=== PATIENT | female | born 1955 | race Caucasian/White ===

== ENCOUNTER 2023-05-09 19:13 | Inpatient (IN) ==
--- NOTE | 2023-05-09 19:23 | Emergency Department Note ---
SOB HPI General Chief Complaint: Shortness of Breath/Dyspnea Stated Complaint: shortness of breath, Afib Time Seen by Provider: 05/09/23 19:23 Source: patient and EMS Mode of arrival: EMS Limitations: no limitations History of Present Illness HPI Narrative: Narrative: This is a 67-year-old white female with a history of paroxysmal atrial fibrillation but has not had a significant recurrence for a number of years. The patient states that she was at one time placed on a Holter monitor and followed briefly by cardiology. There was no further ultrasound or any heart catheterization or other procedures recommended. She did have significant improvement and has not had ongoing or significant chest pain. The patient states that she did have some decreased oral intake as well due to her palpitations that she noted onset today with discomfort. She just recently on Friday had a minimally invasive total left hip arthroplasty but has recovered well. She was not placed on perioperative anticoagulation per the patient. She presents with her daughter today. She denies syncope. She has had some mild redness of her left leg noted as well however this was not in the popliteal area was predominantly in the distal thigh anteriorly. She feels that this may be erythema doing to significant icing of her leg Related Data Home Medications Medication Instructions Recorded Confirmed aspirin 81 mg chewable tablet 81 mg PO BID 05/10/23 05/10/23 hydrocodone 10 mg-acetaminophen 1 - 2 tab PO Q4-6HP PRN pain 05/10/23 05/10/23 325 mg tablet levothyroxine 150 mcg tablet 150 mcg PO QAM 05/10/23 05/10/23 meloxicam 7.5 mg tablet 7.5 mg PO QDAY 05/10/23 05/10/23 methocarbamol 750 mg tablet 750 mg PO Q8HP PRN muscle spasm 05/10/23 05/10/23 promethazine 25 mg tablet 25 mg PO Q8HP PRN nausea 05/10/23 05/10/23 Allergies Allergy/AdvReac Type Severity Reaction Status Date / Time Erythromycin Base AdvReac Nausea Verified 05/09/23 19:20 Review of Systems ROS ROS Narrative: Narrative: 10 point review was reviewed and otherwise negative except described above in HPI PFSH Narrative Patient History Narrative: Narrative: Patient has had paroxysmal atrial fibrillation, history of asthma. Surgical history includes C-sections. Medical/Surgical/Family History All Active Problems (Updated 05/10/23 @ 00:53 by Myles Schilling DO) Palpitations (Acute) Atrial fibrillation with RVR (Acute) Social History Smoking Status: Never smoker Exam Narrative Narrative: Narrative: General Limitations: no limitations General appearance: Present anxious Head Head: Present atraumatic and normocephalic Eye Eye: Present normal appearance, PERRL and scleral icterus (None) ENT ENT: Present normal oropharynx and mucous membranes moist Neck Neck: Present normal inspection, full ROM, meningismus (No) and other (No significant JVD. Trachea midline) Chest Chest: Present normal inspection and tenderness (No) Respiratory Respiratory: Present rales/crackles (Mild at left base.) Cardiovascular Cardiovascular: Present tachycardia, irregular rhythm (Rapid atrial fibrillation with heart rate in the 160s to 170 range) and JVD (No) Adbominal Abdominal: Present soft, rebound (None) and rigidity (None) Extremities Extremities: Present other (Patient had dressing over the left hip from recent total hip arthroplasty. There is also incision with dressing at the right intact. The dressings were not removed. She had some mild left anterior and distal leg erythema. There was negative Homans' sign. She had no significant medial thigh pain) Neurological Neurological: Present alert and oriented X3 Psychiatric Psychiatric: Present normal affect, anxious (Predominantly due to her palpitati ons) and pleasant Skin Skin: Present cool (No), cyanosis (None) and other (Please see extremity exam.) Course Course Course Narrative: Patient had ER visits and we discussed controlling her rate and possibly she may have a conversion since she has had previous paroxysmal atrial fibrillation. Full lab work-up including CBC chemistries, troponin which was performed x2, and EKG. EKG in my opinion had a heart rate of 162 with a QRS duration of 93 with QTc of 452. [place] was -18. The patient had no obvious sign of acute ST elevation. I reviewed the EKG at 1936. The patient did have IV fluid given and chest x-ray performed. In my opinion had possible slight congestion with increased cephalization. There was a questionable infiltrate at the right base versus atelectasis. Patient was placed on amiodarone infusion after bolus was given. She had already taken aspirin today. We performed a left lower extremity Doppler which was negative for DVT. She received a dose of Lovenox due to her persistent atrial fibrillation at approximately 1 mg/kg x 1. Patient did have ongoing fairly rapid heart rate and we gave additional dose of labetalol which was 25 mg IV push which did control the heart rate down to less than 100. Blood pressures remained stable at approximately 1 20-1 30. I discussed the case with Dr. Barron, and felt the patient can be admitted to our institution without transfer. Likely will require echocardiogram. Hopefully the patient does convert. I held off on antibiotics at this time as she had no fever nor elevated WBC count. Patient was reevaluated multiple times in the ED and after heart rate was controlled I rediscussed the case with the hospitalist Dr. Barron, and he recommended an oral beta-delta to be given now and to continue with amiodarone. He would see the patient early in the morning. Patient was up-to-date and notified of our plan. Patient did tolerate the Lovenox as well. Patient to be admitted to the intensive care unit. Vital Signs Vital signs: Vital Signs Temperature 99.5 F H 05/09/23 19:17 Pulse Rate 170 H 05/09/23 19:17 Respiratory Rate 16 05/09/23 19:17 Blood Pressure 158/88 05/09/23 19:17 Pulse Oximetry (%) 94 05/09/23 19:17 Oxygen Delivery Method Room Air 05/09/23 19:17 Temperature 99.5 F H 05/09/23 19:17 Pulse Rate 109 H 05/10/23 00:01 Respiratory Rate 20 05/10/23 00:01 Blood Pressure 120/71 05/10/23 00:01 Pulse Oximetry (%) 95 05/10/23 00:01 Oxygen Delivery Method Room Air 05/09/23 19:17 [facility] MDM Narrative Medical decision making narrative: Narrative: Lab Data Labs: Lab Results 05/09/23 05/09/23 05/09/23 Range/Units 19:22 19:24 21:28 POC Hct 26.0 L (36-48) POC Sodium 140 (133-145) POC Potassium 3.6 (3.3-5.1) POC Chloride 102 (96-108) POC Total CO2 24.0 (22-30) POC Anion Gap 19.0 H (8.0-16.0) POC BUN 12 (6-20) POC Creatinine 0.4 L (0.6-1.2) POC Glucose 136 H (70-105) POC WB Ioniz Calcium 1.14 L (1.16-1.32) POC Troponin I < 0.02 0.03 (0.00-0.08) CC TIME Critical Care Time Critical Care Time: Yes Total Critical Care Time: 35 Attestation: Due to ongoing reevaluation and atrial fibrillation with rapid ventricular rate. Patient's family was notified including the daughter and the patient was informed of results and treatment plan. Patient admitted Discharge Plan Patient/Caregiver Discharge Instructions Pt seen by CONSULTING MANAGER/PA only: No Clinical Impression: Palpitations, Atrial fibrillation with RVR Patient Disposition: Xfer As Inpt ([facility]) Condition: Critical Follow up with: Linsey Smith ARNP [Primary Care Provider] - Prescriptions: No Action Synthroid
[2023-05-09 19:39] LABS: POC Calcium, Ionized 1.14 (1.16-1.32); POC Creatinine 0.4 (0.6-1.2); POC Potassium 3.6 (3.3-5.1)
[2023-05-09] MEDS ORDERED: AMIODARONE 150 MG/3 ML VIAL IV ONE (19:39)
[2023-05-09] MEDS ORDERED: AMIODARONE 360 MG in PREMIX 1 BAG IV SCH (19:45)
[2023-05-09] MEDS ORDERED: ENOXAPARIN 60 MG/0.6 ML SYRINGE SQ ONE (21:04)
[2023-05-09] MEDS ORDERED: ENOXAPARIN 100 MG/ML SYRINGE SQ ONE (21:12)
[2023-05-09] MEDS ORDERED: LABETALOL 5 MG/ML ML IV ONE (21:51)
[2023-05-09] MEDS ORDERED: LABETALOL 5 MG/ML ML IV PRN (22:37)
[2023-05-10] MEDS: METOPROLOL TARTRATE 25 MG TABLET PO SCH ×3 (00:56→20:59)
[2023-05-10] MEDS: AMIODARONE 360 MG in PREMIX 1 BAG IV SCH ×2 (02:03→14:22)
--- NOTE | 2023-05-10 04:01 | Ultrasound Report ---
CLINICAL INFORMATION: Shortness of breath. Recent left leg surgery COMPARISON: None. FINDINGS: The entire deep venous system including the common femoral, superficial femoral, popliteal and paired trifurcation calf veins are easily compressible and show normal venous blood flow on color and spectral Doppler. No evidence of thrombus IMPRESSION: Negative exam - no evidence of deep vein thrombosis. Interpreted and Authenticated by: Omero Luna 05/10/23
--- NOTE | 2023-05-10 04:07 | XRay Report ---
CLINICAL INFORMATION: Dyspnea COMPARISON: 03/29/2019 TECHNIQUE: Portable FINDINGS: The heart size, mediastinum and pulmonary vessels are unremarkable. The lungs are clear. There are no effusions. The bones and soft tissues are within normal limits. IMPRESSION: Normal chest. Interpreted and Authenticated by: Omero Luna 05/10/23
[2023-05-10 06:36] LABS: Basophils # (Auto) 0.05 K/mcL (0.00-0.30); Basophils % (Auto) 0.7 % (0.0-2.0); Eosinophils # (Auto) 0.12 K/mcL (0.00-0.70); Eosinophils % (Auto) 1.6 % (0.0-7.0); Hemoglobin 9.6 g/dL (11.2-15.7); Lymphocytes # (Auto) 1.55 K/mcL (1.50-4.80); Lymphocytes % (Auto) 20.6 % (15.5-49.0); Mean Cell Volume 90.9 fL (80.0-100.0); Mean Platelet Volume 10.8 fL (8.8-12.5); Monocytes # (Auto) 0.72 K/mcL (0.10-0.90); Monocytes % (Auto) 9.6 % (1.0-12.0); Neutrophils % (Auto) 67.4 % (38.0-78.0); Platelet Count 289 K/mcL (140-440); WBC 7.5 K/mcL (4.5-11.0)
[2023-05-10] MEDS ORDERED: SENNOSIDES 1 TABLET PO ONE (06:42)
[2023-05-10 07:01] LABS: ALT/SGPT 13 U/L (<40); AST/SGOT 20 U/L (<32); Albumin 3.1 gm/dL (3.2-5.2); Albumin/Globulin Ratio 1.1 (1.0-2.3); Alkaline Phosphatase 47 U/L (39-117); Bilirubin,Direct < 0.2 mg/dL (0-0.3); Bilirubin,Total 0.3 mg/dL (0.1-1.0); Blood Urea Nitrogen 14 mg/dL (8-23); Calcium 8.9 mg/dL (8.6-10.4); Carbon Dioxide 26 mmol/L (22-30); Chloride 104 mmol/L (96-108); Globulin 2.9 gm/dL (2.2-3.7); Glomerular Filtration Rate 101; Glucose 132 mg/dL (70-105); Lactate Dehydrogenase 262 U/L (135-225); Phosphorous 4.3 mg/dL (2.5-4.5); Triglycerides 84 mg/dL (<150); Uric Acid 3.9 mg/dL (2.5-8.0)
[2023-05-10] MEDS ORDERED: METHOCARBAMOL 750 MG TABLET PO PRN (08:07)
[2023-05-10] MEDS ORDERED: PROMETHAZINE 25 MG TABLET PO PRN (08:07)
[2023-05-10] MEDS ORDERED: HYDROcodone/APAP 10/325MG TABLET PO PRN (08:07)
[2023-05-10] MEDS ORDERED: METOPROLOL TARTRATE 5 MG/5 ML VIAL IV PRN (08:08)
[2023-05-10] MEDS ORDERED: LABETALOL 5 MG/ML ML IV PRN (08:08)
--- NOTE | 2023-05-10 08:10 | Internal Med History&Physical ---
HPI History of Present Illness Patient information: Note initiated : 05/10/23 at 8:00 am Service Date, if different from initiated Date: [] Patient: Kriss Cruz a 67 y/o F admitted on 05/10/23. Chief Complaint: [] History of present illness: Ms. Cruz is a 67 year old F Presents the ED with palpitations and shortness of breath which began yesterday morning and continued to worsen over the next hour. She is 3 days postop from left hip surgery. patient says she was pretty groggy for the first couple days after the surgery and then she started using off the pain medications and then Friday she started feeling lightheaded and had she says heavy palpitations chest pressure Continue to worsen. She does some nausea but no vomiting. she says she has had episodes the past couple years where she felt severe palpitations at work about x2 at home they went away. She also had an episode years ago where she was on a Holter monitor and seen by cardiology for suspected A-fib. She is tachycardic 160s when she arrived. She was treated for A-fib RVR. Patient started on amiodarone drip in the ED and given several doses of IV labetalol. Lower extremity venous Doppler was done which did not show any DVT. Troponin x2 negative Review of Systems: Pertinent positives as above. Denies headache/fever/chills/vomiting/chest or abdominal pain/cough/diarrhea. Remaining 10 point review of system reviewed negative PHYSICAL EXAM General: Alert, Awake, No acute Distress, obese Eyes/N/T: EOMI, no scleral icterus, PERRL, Head/Neck: neck supple, full ROM, normocephalic atraumatic CV: regular now, No murmurs, normal s1/s2 Pulm: Clear b/l, no wheezing/rhonchi/rales, no respiratory distress Abd: soft, nontender, +BS x4 Ext: no clubbing/cyanosis/edema, nontender Neuro: Alert, CN 2-12 grossly intact, no focal deficits, moves all extremities, , sensations intact b/l upper/lower Psychiatric: Skin: warm/dry, normal color PFSH PFSH All Active Problems (Updated 05/10/23 @ 00:53 by Myles Schilling DO) Palpitations (Acute) Atrial fibrillation with RVR (Acute) Social History smoking status: Never smoker MEDS/ALLERGIES Home Medications and Allergies Home Medications Medication Instructions Recorded Confirmed Type apixaban 5 mg tablet (Eliquis) 5 mg PO BID #60 tabs 05/10/23 Rx hydrocodone 10 mg-acetaminophen 1 - 2 tab PO Q4-6HP PRN pain 05/10/23 05/10/23 History 325 mg tablet levothyroxine 150 mcg tablet 150 mcg PO QAM 05/10/23 05/10/23 History meloxicam 7.5 mg tablet 7.5 mg PO QDAY 05/10/23 05/10/23 History methocarbamol 750 mg tablet 750 mg PO Q8HP PRN muscle spasm 05/10/23 05/10/23 History metoprolol tartrate 25 mg tablet 25 mg PO BID #60 tabs 05/10/23 Rx promethazine 25 mg tablet 25 mg PO Q8HP PRN nausea 05/10/23 05/10/23 History Allergies Allergy/AdvReac Type Severity Reaction Status Date / Time Erythromycin Base AdvReac Nausea Verified 05/09/23 19:20 EXAM Constitutional Vitals: Temp Pulse Resp BP Pulse Ox O2 Del Method 97.8 F 79 16 139/92 98 Room Air 05/10/23 04:01 05/10/23 07:01 05/10/23 07:01 05/10/23 07:01 05/10/23 07:01 05/10/23 07:01 DATA Data Completed and Pending Labs: Labs from last 24 hours 05/10/23 05/10/23 05/09/23 05:38 05:37 21:28 WBC 7.5 RBC 3.30 L Hgb 9.6 L Hct 30.0 L POC Hct MCV 90.9 MCH 29.1 MCHC 32.0 RDW 12.0 Plt Count 289 MPV 10.8 Immature Gran % (Auto) 0.1 Neut % (Auto) 67.4 Lymph % (Auto) 20.6 [place] % (Auto) 9.6 Eos % (Auto) 1.6 Baso % (Auto) 0.7 Lymph # (Auto) 1.55 [place] # (Auto) 0.72 Eos # (Auto) 0.12 Baso # (Auto) 0.05 Immature Gran # 0.01 Absolute Neutrophils 5.06 POC Sodium Sodium 141 POC Potassium Potassium 3.8 POC Chloride Chloride 104 Carbon Dioxide 26 POC Total CO2 Anion Gap 11.0 POC Anion Gap POC BUN BUN 14 Creatinine 0.5 L POC Creatinine GFR Calculation 101 Glucose 132 H POC Glucose Uric Acid 3.9 Calcium 8.9 POC WB Ioniz Calcium Phosphorus 4.3 Magnesium 2.1 Total Bilirubin 0.3 Direct Bilirubin < 0.2 GGT 9 AST 20 ALT 13 Alkaline Phosphatase 47 Lactate Dehydrogenase 262 H Total Protein 6.0 Albumin 3.1 L Globulin 2.9 Albumin/Globulin Ratio 1.1 Triglycerides 84 POC Troponin I 0.03 05/09/23 05/09/23 19:24 19:22 WBC RBC Hgb Hct POC Hct 26.0 L MCV MCH MCHC RDW Plt Count MPV Immature Gran % (Auto) Neut % (Auto) Lymph % (Auto) [place] % (Auto) Eos % (Auto) Baso % (Auto) Lymph # (Auto) [place] # (Auto) Eos # (Auto) Baso # (Auto) Immature Gran # Absolute Neutrophils POC Sodium 140 Sodium POC Potassium 3.6 Potassium POC Chloride 102 Chloride Carbon Dioxide POC Total CO2 24.0 Anion Gap POC Anion Gap 19.0 H POC BUN 12 BUN Creatinine POC Creatinine 0.4 L GFR Calculation Glucose POC Glucose 136 H Uric Acid Calcium POC WB Ioniz Calcium 1.14 L Phosphorus Magnesium Total Bilirubin Direct Bilirubin GGT AST ALT Alkaline Phosphatase Lactate Dehydrogenase Total Protein Albumin Globulin Albumin/Globulin Ratio Triglycerides POC Troponin I < 0.02 A/P Narrative A/P Narrative: A: *Afib w/RVR: just converted -CHADSVASC=2 *Recent left hip surgery: On aspirin 81 twice daily *Anemia: Suspect secondary to above *Hypothyroidism: on synthroid *Obesity: BMI 30 P: -Amio drip started in ED, continue -Anticoagulation started with Lovenox -Lopressor twice daily started -Check TSH and t4 -monitor rhythm closely -Echo pending -Home medication reconciliation -PT OT -ppx: Lovenox Time Spent With Patient Time: Total time spent is greater than 50% in coordination of care (as documented) at patient's floor/unit and/or counseling patient: Critical Care Time: Yes Total Critical Care Time: 60 QUALITY VTE Deep Vein Thrombosis/Pulmonary Embolism Present on Admission: No
[2023-05-10] MEDS ORDERED: SENNOSIDES 1 TABLET PO PRN (08:11)
[2023-05-10] MEDS ORDERED: MAGNESIUM SULFATE 2 GM/50 ML BAG IV PRN (08:11)
[2023-05-10] MEDS ORDERED: POTASSIUM CHLORIDE 40 MEQ in DEXTROSE 5% IN WATER 500 ML IV PRN (08:11)
[2023-05-10] MEDS ORDERED: ONDANSETRON 4 MG/2 ML VIAL IV PRN (08:11)
[2023-05-10] MEDS ORDERED: IPRATROPIUM/ALBUTEROL 3 ML AMPUL.NEB NEB PRN (08:11)
[2023-05-10] MEDS ORDERED: POLYETHYLENE GLYCOL 3350 17 GM PACKET PO PRN (08:11)
[2023-05-10] MEDS ORDERED: POTASSIUM CHLORIDE 20 MEQ TABLET PO PRN ×2 (08:11)
[2023-05-10] MEDS: MELOXICAM 7.5 MG TABLET PO SCH (09:10)
[2023-05-10] MEDS: LEVOTHYROXINE 150 MCG TABLET PO SCH (09:10)
[2023-05-10] MEDS: ENOXAPARIN 80 MG/0.8 ML SYRINGE SQ SCH ×2 (09:11→20:59)
[2023-05-10] MEDS: DOCUSATE SODIUM 100 MG CAPSULE PO SCH ×2 (09:11→20:59)
--- NOTE | 2023-05-10 10:55 | Discharge Summary ---
Discharge Provider Provider IMPORTANT FOLLOW-UP INFORMATION FOR PCP: Patient information: Note initiated : 05/10/23 at 10:54 am Service Date, if different from initiated Date: [] Patient: Kriss Cruz a 67 y/o F admitted on 05/10/23. Chief Complaint: [] Date of admission: 05/10/23 01:30 Discharge date: 05/11/23 Primary care physician: Linsey Smith Consults: 05/09/23 Consult to Physician [CONS] Stat Comment: Consulting Provider: Souleymane Barron Reason For Exam: Physician to Consult COURSE Hospital Course Hospital course: History of present illness: Ms. Cruz is a 67 year old F Presents the ED with palpitations and shortness of breath which began yesterday morning and continued to worsen over the next hour. She is 3 days postop from left hip surgery. patient says she was pretty groggy for the first couple days after the surgery and then she started using off the pain medications and then Friday she started feeling lightheaded and had she says heavy palpitations chest pressure Continue to worsen. She does some nausea but no vomiting. she says she has had episodes the past couple years where she felt severe palpitations at work about x2 at home they went away. She also had an episode years ago where she was on a Holter monitor and seen by cardiology for suspected A-fib. She is tachycardic 160s when she arrived. She was treated for A-fib RVR. Patient started on amiodarone drip in the ED and given several doses of IV labetalol. Lower extremity venous Doppler was done which did not show any DVT. Troponin x2 negative 05/11 Patient feeling well. Patient remains in sinus. Stable for discharge. We will prescribe Eliquis and Lopressor and have her follow-up with PCP. A: *PAfib w/RVR: converted -CHADSVASC=2 *Recent left hip surgery: On aspirin 81 twice daily *Anemia: Suspect secondary to above *Hypothyroidism: *Obesity: BMI 30 P: -lopressor -eliquis Discharge diagnosis: atrial fibrillation with RVR anemia hypothyroidism Secondary discharge diagnosis: obesity recent left hip surgery Time Spent with Patient Time attestation: Total time spent providing and/or coordinating discharge services: Time spent: Greater than 30 minutes EXAM Constitutional Vitals: Temp Pulse Resp BP Pulse Ox O2 Del Method 97.9 F 75 16 122/67 97 Room Air 05/10/23 08:01 05/10/23 08:01 05/10/23 10:01 05/10/23 10:01 05/10/23 08:01 05/10/23 10:01 Discharge Data Data Completed and Pending Labs on day of discharge: Labs from last 24 hours 05/10/23 05/10/23 05/10/23 05:38 05:37 05:37 WBC 7.5 RBC 3.30 L Hgb 9.6 L Hct 30.0 L POC Hct MCV 90.9 MCH 29.1 MCHC 32.0 RDW 12.0 Plt Count 289 MPV 10.8 Immature Gran % (Auto) 0.1 Neut % (Auto) 67.4 Lymph % (Auto) 20.6 [place] % (Auto) 9.6 Eos % (Auto) 1.6 Baso % (Auto) 0.7 Lymph # (Auto) 1.55 [place] # (Auto) 0.72 Eos # (Auto) 0.12 Baso # (Auto) 0.05 Immature Gran # 0.01 Absolute Neutrophils 5.06 POC Sodium Sodium POC Potassium Potassium POC Chloride Chloride Carbon Dioxide POC Total CO2 Anion Gap POC Anion Gap POC BUN BUN Creatinine POC Creatinine GFR Calculation Glucose POC Glucose Uric Acid Calcium POC WB Ioniz Calcium Phosphorus Magnesium Total Bilirubin Direct Bilirubin GGT AST ALT Alkaline Phosphatase Lactate Dehydrogenase Total Protein Albumin Globulin Albumin/Globulin Ratio Triglycerides TSH 0.06 L Free T4 Pending POC Troponin I 05/10/23 05/09/23 05/09/23 05:37 21:28 19:24 WBC RBC Hgb Hct POC Hct 26.0 L MCV MCH MCHC RDW Plt Count MPV Immature Gran % (Auto) Neut % (Auto) Lymph % (Auto) [place] % (Auto) Eos % (Auto) Baso % (Auto) Lymph # (Auto) [place] # (Auto) Eos # (Auto) Baso # (Auto) Immature Gran # Absolute Neutrophils POC Sodium 140 Sodium 141 POC Potassium 3.6 Potassium 3.8 POC Chloride 102 Chloride 104 Carbon Dioxide 26 POC Total CO2 24.0 Anion Gap 11.0 POC Anion Gap 19.0 H POC BUN 12 BUN 14 Creatinine 0.5 L POC Creatinine 0.4 L GFR Calculation 101 Glucose 132 H POC Glucose 136 H Uric Acid 3.9 Calcium 8.9 POC WB Ioniz Calcium 1.14 L Phosphorus 4.3 Magnesium 2.1 Total Bilirubin 0.3 Direct Bilirubin < 0.2 GGT 9 AST 20 ALT 13 Alkaline Phosphatase 47 Lactate Dehydrogenase 262 H Total Protein 6.0 Albumin 3.1 L Globulin 2.9 Albumin/Globulin Ratio 1.1 Triglycerides 84 TSH Free T4 POC Troponin I 0.03 05/09/23 19:22 WBC RBC Hgb Hct POC Hct MCV MCH MCHC RDW Plt Count MPV Immature Gran % (Auto) Neut % (Auto) Lymph % (Auto) [place] % (Auto) Eos % (Auto) Baso % (Auto) Lymph # (Auto) [place] # (Auto) Eos # (Auto) Baso # (Auto) Immature Gran # Absolute Neutrophils POC Sodium Sodium POC Potassium Potassium POC Chloride Chloride Carbon Dioxide POC Total CO2 Anion Gap POC Anion Gap POC BUN BUN Creatinine POC Creatinine GFR Calculation Glucose POC Glucose Uric Acid Calcium POC WB Ioniz Calcium Phosphorus Magnesium Total Bilirubin Direct Bilirubin GGT AST ALT Alkaline Phosphatase Lactate Dehydrogenase Total Protein Albumin Globulin Albumin/Globulin Ratio Triglycerides TSH Free T4 POC Troponin I < 0.02 Discharge Plan Patient/Caregiver Discharge Instructions Activity: increase activity as tolerated Diet: Regular Diet Instructions: A-fib (Atrial Fibrillation) (GEN) Prescriptions: New Eliquis 5 mg tablet 5 mg PO BID Qty: 60 0RF metoprolol tartrate 25 mg Tablet 25 mg PO BID Qty: 60 0RF Continued hydrocodone-acetaminophen 10-325 mg tablet 1 - 2 tab PO Q4-6HP PRN (Reason: pain) meloxicam 7.5 mg tablet 7.5 mg PO QDAY methocarbamol 750 mg tablet 750 mg PO Q8HP PRN (Reason: muscle spasm) promethazine 25 mg tablet 25 mg PO Q8HP PRN (Reason: nausea) Discontinued aspirin 81 mg Tablet,Chewable 81 mg PO BID No Action levothyroxine 150 mcg tablet 150 mcg PO QAM liothyronine 5 mcg tablet 5 mcg PO Q12 Follow Up Plan Follow up with: Linsey Smith ARNP [Primary Care Provider] - Patient Disposition: Home, Self-Care Prognosis: Fair Overall status at discharge: patient is progressing back to baseline Discharge Orders: Discharge Order (Routine); Ordered 05/11/23 [facility] Thrombosis/Pulmonary Embolism Present on Admission: No
[2023-05-10] MEDS: ACETAMINOPHEN 325 MG TABLET PO PRN (17:44)
[2023-05-11 06:47] LABS: Basophils # (Auto) 0.06 K/mcL (0.00-0.30); Eosinophils # (Auto) 0.19 K/mcL (0.00-0.70); Eosinophils % (Auto) 3.1 % (0.0-7.0); Hematocrit 28.5 % (34.1-44.9); Hemoglobin 9.2 g/dL (11.2-15.7); Lymphocytes % (Auto) 23.1 % (15.5-49.0); Mean Cell Volume 90.8 fL (80.0-100.0); Mean Corpuscular HGB Conc 32.3 g/dL (31.0-36.0); Mean Platelet Volume 10.4 fL (8.8-12.5); Monocytes # (Auto) 0.45 K/mcL (0.10-0.90); Monocytes % (Auto) 7.4 % (1.0-12.0); Neutrophils % (Auto) 65.1 % (38.0-78.0); Platelet Count 305 K/mcL (140-440); RBC 3.14 M/mcL (3.59-5.38); WBC 6.1 K/mcL (4.5-11.0)
[2023-05-11] MEDS: ACETAMINOPHEN 325 MG TABLET PO PRN (07:00)
[2023-05-11] MEDS: LEVOTHYROXINE 150 MCG TABLET PO SCH (07:06)
--- NOTE | 2023-05-11 09:07 | EKG ---
[facility] Test Date: 2023-05-09 Pat Name: Kriss Cruz Department: ED Room: Gender: Female Fish Icer: CS : 1955 Requested By: Myles Schilling Order Number: [id number] Reading MD: Memo Fuller Measurements Intervals [place] Rate: 162 P: [place]: QRS: -18 QRSD: 83 T: 107 QT: 272 QTc: 452 Interpretive Statements Atrial fibrillation with rapid V-rate Electronically Signed On 05-11-2023 9:07:21 PDT by Memo Fuller /store/[email or web address]/[id number]
--- NOTE | 2023-05-11 09:08 | EKG ---
[facility] Test Date: 2023-05-10 Pat Name: Kriss Cruz Department: ICU Room: 120C Gender: Female Brush Painter: : 1955 Requested By: Souleymane Barron Order Number: [id number] Reading MD: Memo Fuller Measurements Intervals [place] Rate: 75 P: 43 [place]: 158 QRS: -23 QRSD: 88 T: -8 QT: 377 QTc: 421 Interpretive Statements Sinus rhythm Left ventricular hypertrophy Not significantly changed compared to prior Electronically Signed On 05-11-2023 9:08:43 PDT by Memo Fuller /store/[email or web address]/[id number]
[2023-05-11] MEDS: METOPROLOL TARTRATE 25 MG TABLET PO SCH (10:29)
[2023-05-11] MEDS: ENOXAPARIN 80 MG/0.8 ML SYRINGE SQ SCH (10:29)
[2023-05-11] MEDS: DOCUSATE SODIUM 100 MG CAPSULE PO SCH (10:29)
[2023-05-11] MEDS: MELOXICAM 7.5 MG TABLET PO SCH (10:29)
== END 2023-05-11 11:00 | disposition home or self-care (01) | DRG 310 ==
LOC: ED 19:13 → ICU 05-10 01:30
PROVIDERS: ADMIT Internal Medicine; ATTEND Internal Medicine